=== PATIENT | female | born 1935 | race Caucasian/White ===

== ENCOUNTER 2017-02-27 12:17 | Inpatient (IN) | payer OTHER ==
[~2017-02-27] VITALS: Ht 162.6 cm; Wt 63.6 kg
[2017-02-27 13:11] LABS: EOSINOPHIL (%) 0 % (0-5); HEMATOCRIT 35.8 % (36.0-46.0); IMMATURE GRANULOCYTE (%) 0.4 % (0.0-0.7); INSTRUMENT ABS NEUTROPHIL CT 8.6 K/uL; LYMPHOCYTE COUNT 0.4 K/uL (1.0-2.8); MCH 32.1 PG (29.0-34.0); MCHC 33.2 G/DL (30.0-36.0); MCV 96.5 FL (83-99); MEAN PLAT.VOLUME 11.7 uM^3 (9.5-12.4); MONOCYTE (%) 5.6 % (3-12); MONOCYTE COUNT 0.5 K/uL (0-0.8); NEUTROPHIL (%) 89.7 % (45-76); NEUTROPHIL COUNT 8.6 K/uL (1.8-6.4); PLATELET COUNT 201 K/uL (156-360); RBC DIS.WIDTH-CV 13.7 % (11.8-14.6); RBC DIS.WIDTH-SD 49.1 % (39-53); RED BLOOD COUNT 3.71 M/uL (3.80-5.20); WHITE BLOOD COUNT 9.5 K/uL (4.1-10.2)
[2017-02-27 13:17] LABS: INTER. NORMALIZED RATIO 1.1; PROTHROMBIN TIME 11.8 SEC (10.2-12.9)
[2017-02-27 13:20] LABS: CHLORIDE 102 mEq/L (99-109); POTASSIUM 3.3 mEq/L (3.7-5.4); PTT 26.9 SEC (25-37); SODIUM 141 mEq/L (136-147)
[2017-02-27 13:23] LABS: GLUCOSE 175 mg/dL (70-99)
[2017-02-27 13:24] LABS: ANION GAP 9 MEQ/L (2-14); TOTAL BILIRUBIN 0.5 mg/dL (0.0-1.0)
[2017-02-27 13:26] LABS: ALKALINE PHOSPHATASE 63 IU/L (3-129); GFR ESTIMATE (CALCULATED) > 59 mL/min/
[2017-02-27 13:27] LABS: UREA NITROGEN (BUN) 12 mg/dL (9-23)
[2017-02-27 13:30] LABS: LIPASE 15 U/L (1.0-51.0)
[2017-02-27 13:33] LABS: TROP-I INTERPRETATION NEGATIVE; TROPONIN-I 0.19 ng/mL (0.0-0.30)
[2017-02-27 14:24] LABS: ADD MIUA? NO; BILIRUBIN NEGATIVE; BLOOD NEGATIVE; COLOR YELLOW ((YELLOW)); GLUCOSE (STRIP) 50; KETONES 5; LEUKOCYTES NEGATIVE; NITRITE NEGATIVE; PROTEIN (STRIP) NEGATIVE; SPECIFIC GRAVITY 1.013 (1.000-1.030); UCUL ADDED? NO; UROBILINOGEN 0.2 MG/DL (0.2-1.0)
[2017-02-27] MEDS ORDERED: CEFTIN500 MG PO (15:52)
[2017-02-27] MEDS ORDERED: TIZANIDINE HCL4 MG PO (15:52)
[2017-02-27] MEDS ORDERED: PRAVACHOL80 MG PO (15:52)
[2017-02-27] MEDS ORDERED: AMLODIPINE-BEN1 EAC3 PO (15:52)
[2017-02-27] MEDS ORDERED: CALCIUM 500 +1 EACH PO (15:53)
[2017-02-27] MEDS ORDERED: CO Q-10100 MG PO (15:53)
[2017-02-27] MEDS ORDERED: VOLTAREN 1% GE100 GM TP (15:53)
[2017-02-27] MEDS ORDERED: WOMEN'S DAILY1 EAC2 PO (15:53)
[2017-02-27 20:40] VITALS: BP 185/84
[2017-02-27 23:33] VITALS: BP 171/75
[2017-02-28 07:10] LABS: ANION GAP 6 MEQ/L (2-14); CHLORIDE 101 MEQ/L (99-109); GFR ESTIMATE (CALCULATED) > 59 mL/min/; POTASSIUM 3.3 MEQ/L (3.7-5.4); SAMPLE HEMOLYSIS CHECK 0; SAMPLE ICTERIC CHECK 0; SAMPLE LIPEMIA CHECK 0; SODIUM 142 MEQ/L (136-147); UREA NITROGEN (BUN) 10 mg/dL (9-23)
[2017-02-28 07:15] LABS: GLUCOSE 100 mg/dL (70-99)
[2017-02-28 09:32] VITALS: BP 99/59
[2017-02-28 23:39] VITALS: BP 104/72
[2017-03-01 06:18] LABS: ANION GAP 6 MEQ/L (2-14); CHLORIDE 103 MEQ/L (99-109); GFR ESTIMATE (CALCULATED) > 59 mL/min/; GLUCOSE 174 mg/dL (70-99); POTASSIUM 4.3 MEQ/L (3.7-5.4); SAMPLE HEMOLYSIS CHECK 0; SAMPLE ICTERIC CHECK 0; SAMPLE LIPEMIA CHECK 0; SODIUM 142 MEQ/L (136-147); UREA NITROGEN (BUN) 19 mg/dL (9-23)
[2017-03-01 08:09] VITALS: BP 143/63
[2017-03-01 12:56] LABS: Estimated Average Glucose 108 mg/dL (70-123); HEMOGLOBIN A1c (GLYCOHEMOGLOB) 5.4 % HGB (Below 5.7)
[2017-03-01 16:34] VITALS: BP 138/63
[2017-03-02 00:30] VITALS: BP 176/80
[2017-03-02 07:26] VITALS: BP 153/69
[2017-03-02 16:08] VITALS: BP 182/76
[2017-03-02 17:54] VITALS: BP 163/73
[2017-03-02 23:33] VITALS: BP 138/76
[2017-03-03 06:34] VITALS: BP 151/75
[2017-03-03] MEDS ORDERED: SPIRIVA RESPIMAT4 GM IH (12:37)
[2017-03-03] MEDS ORDERED: BREO ELLIPTA I1 EACH IH (12:40)
[2017-03-03] MEDS ORDERED: ANTIVERT25 MG PO (12:40)
[2017-03-03] MEDS ORDERED: PREDNISONE10 MG PO (12:42)
[2017-03-03] MEDS ORDERED: LIDODERM 5% P1 PATCH TD (12:43)
== END 2017-03-03 15:06 | DRG 191 ==
LOC: EME 12:17 → EDOF 17:40 → 5EAST 17:40 → ENRESERV 17:41 → 5EAST 20:28
PROVIDERS: Emergency Medicine; Family Medicine
DX: J44.1 Chronic obstructive pulmonary disease with (acute) exacerbation (principal); J44.0 Chronic obstructive pulmonary disease with (acute) lower respiratory infection; J20.9 Acute bronchitis, unspecified; E87.6 Hypokalemia; R73.9 Hyperglycemia, unspecified; H66.92 Otitis media, unspecified, left ear; E78.1 Pure hyperglyceridemia; B02.29 Other postherpetic nervous system involvement; E78.5 Hyperlipidemia, unspecified; I10 Essential (primary) hypertension; M81.0 Age-related osteoporosis without current pathological fracture; F17.200 Nicotine dependence, unspecified, uncomplicated; R29.6 Repeated falls; Z66 Do not resuscitate
CPT/HCPCS: 70450; 71010; 80048; 80053; 81003; 83036; 83605; 83690; 83880; 84484; 85025; 85610; 85730; 93005; 94640; 94640 76; 94799; 99202; 99281; 99285; J2930; J7512

== ENCOUNTER 2017-04-14 14:54 | Inpatient (IN) | payer OTHER ==
[~2017-04-14] VITALS: Ht 165.1 cm; Wt 58.0 kg
[~2017-04-14 14:54] MED LIST: ANTIVERT25 MG PO; BREO ELLIPTA I1 EACH IH; CALCIUM 500 +1 EACH PO; CEFTIN500 MG PO; CO Q-10100 MG PO; LIDODERM 5% P1 PATCH TD; LOTREL 5/401 CAPSULE PO; PRAVACHOL40 MG PO; PREDNISONE10 MG PO; SPIRIVA RESPIMAT4 GM IH; VOLTAREN 1% GE100 GM TP; WOMEN'S DAILY1 EAC2 PO; ZANAFLEX4 M1 PO
[2017-04-14 17:05] LABS: EOSINOPHIL (%) 0 % (0-5); HEMATOCRIT 35.4 % (36.0-46.0); IMMATURE GRANULOCYTE (%) 0.5 % (0.0-0.7); INSTRUMENT ABS NEUTROPHIL CT 7.1 K/uL; LYMPHOCYTE COUNT 0.7 K/uL (1.0-2.8); MCH 31.6 PG (29.0-34.0); MCHC 32.8 G/DL (30.0-36.0); MEAN PLAT.VOLUME 11.1 uM^3 (9.5-12.4); MONOCYTE (%) 7.7 % (3-12); MONOCYTE COUNT 0.7 K/uL (0-0.8); NEUTROPHIL (%) 83.2 % (45-76); NEUTROPHIL COUNT 7.1 K/uL (1.8-6.4); RBC DIS.WIDTH-CV 11.4 % (11.8-14.6); RBC DIS.WIDTH-SD 40.6 % (39-53); RED BLOOD COUNT 3.67 M/uL (3.80-5.20); WHITE BLOOD COUNT 8.5 K/uL (4.1-10.2)
[2017-04-14 17:06] LABS: ADD MIUA? YES; BILIRUBIN NEGATIVE; BLOOD NEGATIVE; COLOR YELLOW ((YELLOW)); GLUCOSE (STRIP) NEGATIVE; KETONES NEGATIVE; LEUKOCYTES NEGATIVE; NITRITE NEGATIVE; PROTEIN (STRIP) NEGATIVE; UROBILINOGEN 0.2 MG/DL (0.2-1.0)
[2017-04-14 17:08] LABS: MCV 96.5 FL (83-99); PLATELET COUNT 248 K/uL (156-360)
[2017-04-14 17:09] LABS: BACTERIA NONE SEEN /HPF; EPITHELIAL CELLS RARE /HPF; MUCUS TRACE /LPF; RED BLOOD CELLS 0-5 /HPF (0-5); WHITE BLOOD CELLS 0-5 /HPF (0-5)
[2017-04-14 17:13] LABS: CHLORIDE 102 mEq/L (99-109); POTASSIUM 4.3 mEq/L (3.7-5.4); SODIUM 140 mEq/L (136-147)
[2017-04-14 17:16] LABS: GLUCOSE 124 mg/dL (70-99)
[2017-04-14 17:17] LABS: ANION GAP 9 MEQ/L (2-14); TOTAL BILIRUBIN 0.3 mg/dL (0.0-1.0)
[2017-04-14 17:19] LABS: ALKALINE PHOSPHATASE 108 IU/L (3-129); GFR ESTIMATE (CALCULATED) > 59 mL/min/
[2017-04-14 17:21] LABS: DIRECT BILIRUBIN 0.2 mg/dL (0.0-0.3); UREA NITROGEN (BUN) 11 mg/dL (9-23)
[2017-04-14 17:23] LABS: LIPASE 19 U/L (1.0-51.0)
[2017-04-14 19:03] LABS: TROP-I INTERPRETATION NEGATIVE; TROPONIN-I < 0.01 ng/mL (0.0-0.30)
[2017-04-14] MEDS ORDERED: SPIRIVA RESPIMAT4 GM IH (20:50)
[2017-04-14] MEDS ORDERED: AZELASTINE205.5 MCG/ BOTH NARES (20:53)
[2017-04-14] MEDS ORDERED: TYLENOL EXTRA500 MG PO (20:53)
[2017-04-14 22:59] VITALS: BP 138/71
[2017-04-15] VITALS (7 sets, daily range): BP systolic 103–128; BP diastolic 56–62
[2017-04-15 06:51] LABS: HEMATOCRIT 34.2 % (36.0-46.0); MCH 31.4 PG (29.0-34.0); MCHC 32.5 G/DL (30.0-36.0); MCV 96.9 FL (83-99); MEAN PLAT.VOLUME 11.5 uM^3 (9.5-12.4); PLATELET COUNT 234 K/uL (156-360); RBC DIS.WIDTH-CV 11.5 % (11.8-14.6); RBC DIS.WIDTH-SD 40.5 % (39-53); RED BLOOD COUNT 3.53 M/uL (3.80-5.20); WHITE BLOOD COUNT 3.8 K/uL (4.1-10.2)
[2017-04-15 07:15] LABS: ANION GAP 7 MEQ/L (2-14); CHLORIDE 104 MEQ/L (99-109); GFR ESTIMATE (CALCULATED) > 59 mL/min/; GLUCOSE 151 mg/dL (70-99); POTASSIUM 4.4 MEQ/L (3.7-5.4); SAMPLE HEMOLYSIS CHECK 0; SAMPLE ICTERIC CHECK 0; SAMPLE LIPEMIA CHECK 0; SODIUM 142 MEQ/L (136-147); UREA NITROGEN (BUN) 10 mg/dL (9-23)
[2017-04-15 08:10] LABS: INTERNAL CONTROL VALID? YES
[2017-04-16 03:05] VITALS: BP 117/67
[2017-04-16 07:35] VITALS: BP 140/76
[2017-04-16 15:43] VITALS: BP 130/65
[2017-04-16 20:22] VITALS: BP 123/61
[2017-04-17 00:27] VITALS: BP 120/62
[2017-04-17 07:20] VITALS: BP 155/72
[2017-04-17 15:50] VITALS: BP 133/61
[2017-04-18] VITALS: BP 159/70
[2017-04-18] MEDS ORDERED: PREDNISONE10 MG PO (07:23)
[2017-04-18] MEDS ORDERED: LEVAQUIN500 MG PO (07:25)
[2017-04-18] MEDS ORDERED: DUONEB 2.5-0.5 M3 ML AEROSOL (07:26)
[2017-04-18] MEDS ORDERED: ALBUTEROL2.5 MG/3 M IH (07:27)
[2017-04-18 07:32] VITALS: BP 146/82
== END 2017-04-18 11:46 | DRG 194 ==
LOC: EME 14:54 → EDOF 21:26 → 2EAST 21:26 → ENRESERV 21:27 → 2EAST 22:47
PROVIDERS: Family Medicine; Physician Assistant
DX: J18.9 Pneumonia, unspecified organism (principal); J44.0 Chronic obstructive pulmonary disease with (acute) lower respiratory infection; J44.1 Chronic obstructive pulmonary disease with (acute) exacerbation; Y95 Nosocomial condition; I10 Essential (primary) hypertension; E78.5 Hyperlipidemia, unspecified; R42 Dizziness and giddiness; M81.0 Age-related osteoporosis without current pathological fracture; K59.00 Constipation, unspecified; F17.210 Nicotine dependence, cigarettes, uncomplicated; Z91.81 History of falling; Z90.49 Acquired absence of other specified parts of digestive tract
CPT/HCPCS: 71010; 71275; 80048; 80076; 80202; 81003; 83605; 83690; 83880; 84484; 85025; 85027; 87040; 87086; 87449; 87502; 93005; 94640; 94640 76; 94799; 97530 GP; 99202; 99281; 99285; J1644; J1956; J2405; J2543; J2930; J3370; J7040; J7050

== ENCOUNTER 2017-10-22 10:07 | Inpatient (IN) | payer OTHER ==
[~2017-10-22] VITALS: Ht 162.6 cm; Wt 64.6 kg
[~2017-10-22 10:07] MED LIST changes: +ALBUTEROL2.5 MG/3 M IH; +AZELASTINE205.5 MCG/ BOTH NARES; +DUONEB 2.5-0.5 M3 ML AEROSOL; +LEVAQUIN500 MG PO; +LOTREL 5/201 CAPSULE PO; -LOTREL 5/401 CAPSULE PO; -PRAVACHOL40 MG PO; +PRAVACHOL80 MG PO; +TYLENOL EXTRA500 MG PO
[2017-10-22 10:35] LABS: BASOPHIL (%) 0.4 % (0-1); BASOPHIL COUNT 0.1 K/uL (0-0.1); EOSINOPHIL (%) 0.2 % (0-5); HEMATOCRIT 39.9 % (36.0-46.0); HEMOGLOBIN 13.2 G/DL (11.9-15.5); IMMATURE GRANULOCYTE (%) 0.4 % (0.0-0.7); LYMPHOCYTE (%) 5.3 % (15-42); LYMPHOCYTE COUNT 0.7 K/uL (1.0-2.8); MCH 31.4 PG (29.0-34.0); MCHC 33.1 G/DL (30.0-36.0); MONOCYTE (%) 7.7 % (3-12); NEUTROPHIL COUNT 11.2 K/uL (1.8-6.4); PLATELET COUNT 202 K/uL (156-360); RBC DIS.WIDTH-CV 12.7 % (11.8-14.6); RBC DIS.WIDTH-SD 43.7 % (39-53); WHITE BLOOD COUNT 13.1 K/uL (4.1-10.2)
[2017-10-22 10:43] LABS: CHLORIDE 108 mEq/L (99-109); POTASSIUM 3.9 mEq/L (3.7-5.4); SODIUM 142 mEq/L (136-147)
[2017-10-22 10:44] LABS: GLUCOSE 145 mg/dL (70-99)
[2017-10-22 10:48] LABS: CREATININE 0.8 mg/dL (0.6-1.3); GFR ESTIMATE (CALCULATED) > 59 mL/min/
[2017-10-22 10:49] LABS: UREA NITROGEN (BUN) 20 mg/dL (9-23)
[2017-10-22 13:05] LABS: TROP-I INTERPRETATION NEGATIVE; TROPONIN-I < 0.01 ng/mL (0.0-0.30)
[2017-10-22] MEDS ORDERED: LYRICA50 MG PO (14:56)
[2017-10-22] MEDS ORDERED: TRELEGY ELLIPT1 EACH IH (14:57)
[2017-10-22 16:54] VITALS: BP 128/63
[2017-10-22 19:52] VITALS: BP 151/67
[2017-10-22 21:22] LABS: TROP-I INTERPRETATION NEGATIVE; TROPONIN-I < 0.01 ng/mL (0.0-0.30)
[2017-10-22 23:31] VITALS: BP 106/59
[2017-10-23] VITALS (9 sets, daily range): BP systolic 106–149; BP diastolic 51–65
[2017-10-23 06:32] LABS: HEMOGLOBIN 11.4 G/DL (11.9-15.5); MCH 30.7 PG (29.0-34.0); MCHC 31.7 G/DL (30.0-36.0); PLATELET COUNT 190 K/uL (156-360); RBC DIS.WIDTH-CV 12.9 % (11.8-14.6); RBC DIS.WIDTH-SD 45.3 % (39-53); RED BLOOD COUNT 3.71 M/uL (3.80-5.20); WHITE BLOOD COUNT 5.5 K/uL (4.1-10.2)
[2017-10-23 06:52] LABS: TROP-I INTERPRETATION NEGATIVE; TROPONIN-I < 0.01 ng/mL (0.0-0.30)
[2017-10-23 07:02] LABS: CHLORIDE 108 MEQ/L (99-109); CREATININE 0.8 MG/DL (0.6-1.3); GFR ESTIMATE (CALCULATED) > 59 mL/min/; SODIUM 144 MEQ/L (136-147); UREA NITROGEN (BUN) 15 mg/dL (9-23)
[2017-10-23 07:25] LABS: GLUCOSE 89 mg/dL (70-99)
[2017-10-24 03:47] VITALS: BP 123/58
[2017-10-24 08:16] VITALS: BP 125/60
[2017-10-24 12:16] VITALS: BP 114/52
[2017-10-24 16:03] VITALS: BP 161/74
[2017-10-24 19:22] VITALS: BP 117/57
[2017-10-24 23:29] VITALS: BP 126/59
[2017-10-25 04:03] VITALS: BP 121/58
[2017-10-25 07:52] VITALS: BP 124/59
[2017-10-25] MEDS ORDERED: CEFTIN500 MG PO (08:33)
[2017-10-25] MEDS ORDERED: DUONEB 2.5-0.5 M3 ML AEROSOL (08:34)
[2017-10-25] MEDS ORDERED: ASPIRIN EC325 MG PO (08:34)
[2017-10-25] MEDS ORDERED: OXYGEN MC (08:36)
== END 2017-10-25 13:39 | DRG 190 ==
LOC: EME 10:07 → 3EAST 14:35 → EDOF 14:35 → ENRESERV 14:44 → 3EAST 16:32
PROVIDERS: Emergency Medicine; Family Medicine
DX: J44.0 Chronic obstructive pulmonary disease with (acute) lower respiratory infection (principal); J18.9 Pneumonia, unspecified organism; R09.02 Hypoxemia; R55 Syncope and collapse; B02.29 Other postherpetic nervous system involvement; I10 Essential (primary) hypertension; E78.5 Hyperlipidemia, unspecified; Z91.81 History of falling; M81.0 Age-related osteoporosis without current pathological fracture; K21.9 Gastro-esophageal reflux disease without esophagitis; Z87.891 Personal history of nicotine dependence
CPT/HCPCS: 70450; 70553; 71045; 71275; 80048; 84484; 85025; 85027; 93005; 93306; 93880; 94640; 94640 76; 94799; 99202; 99281; 99285; J0696; J1644; J7030